=== PATIENT | male | born 1955 | race Caucasian/White ===

== ENCOUNTER → 2017-02-19 | Outpatient (CLI) | payer OTHER ==
[2017-02-19 09:47] LABS: HEMOGLOBIN 14.4 gm/dl (14.0-17.5); RED BLOOD COUNT 4.7 M/UL (4.20-5.50); WHITE BLOOD COUNT 4.5 K/UL (4.5-11.0)
[2017-02-19 10:24] LABS: BUN/CREATININE RATIO 14 (0-10)
== END ==
LOC: LAB 08:26
PROVIDERS: Family Medicine
DX: E11.9 Type 2 diabetes mellitus without complications (principal); Z79.899 Other long term (current) drug therapy
CPT/HCPCS: 36415; 80053; 80061; 83036; 84439; 84443; 85025

== ENCOUNTER → 2017-04-06 | Outpatient (CLI) | payer OTHER ==
[2017-04-06 10:43] LABS: HEMOGLOBIN 15.2 gm/dl (14.0-17.5); RED BLOOD COUNT 5.07 M/UL (4.20-5.50)
== END ==
LOC: LAB 10:11
PROVIDERS: Family Medicine
DX: D69.6 Thrombocytopenia, unspecified (principal)
CPT/HCPCS: 36415; 85025

== ENCOUNTER → 2017-05-18 | Outpatient (CLI) | payer OTHER ==
[2017-05-18 10:30] LABS: HEMOGLOBIN 15.1 gm/dl (14.0-17.5); RED BLOOD COUNT 5.01 M/UL (4.20-5.50); WHITE BLOOD COUNT 5.5 K/UL (4.5-11.0)
[2017-05-18 10:50] LABS: BUN/CREATININE RATIO 15 (0-10)
== END ==
LOC: LAB 10:03
PROVIDERS: Family Medicine
DX: E11.9 Type 2 diabetes mellitus without complications (principal); Z79.899 Other long term (current) drug therapy
CPT/HCPCS: 36415; 80053; 80061; 83036; 85025

== ENCOUNTER 2017-05-24 17:52 | Emergency (ER) | payer OTHER | END 2017-05-24 19:49 | disposition home or self-care (01) | LOC: ER1 17:52 | DX: S82.432A Displaced oblique fracture of shaft of left fibula, initial encounter for closed fracture (principal); I25.2 Old myocardial infarction; E11.9 Type 2 diabetes mellitus without complications; W10.9XXA Fall (on) (from) unspecified stairs and steps, initial encounter; Y92.009 Unspecified place in unspecified non-institutional (private) residence as the place of occurrence of the external cause; Z95.1 Presence of aortocoronary bypass graft; Z88.5 Allergy status to narcotic agent | CPT/HCPCS: 29515; 73590; 73610; 73630; 99283 ==

== ENCOUNTER → 2021-01-03 | Day surgery (SDC) | payer OTHER ==
[~2021-01-03] MED LIST: ACTOS30 MG PO; ADULT LOW DOSE81 MG PO; BACLOFEN10 MG PO; FARXIGA10 MG PO; FISH OIL 1,2001 EAC1 PO; ISOSORBIDE DINI30 MG PO; JANUVIA 100 MG100 MG PO; LANTUS100 UNIT/1 SQ; LEVOTHYROXINE25 MC1 PO; LIPITOR80 MG PO; METOPROLOL TART25 MG PO; NEURONTIN300 MG PO; PLAVIX75 MG PO; PROTONIX40 MG PO
== END | disposition home or self-care (01) ==
LOC: OR 07:16
DX: D50.0 Iron deficiency anemia secondary to blood loss (chronic) (principal); K31.9 Disease of stomach and duodenum, unspecified; D12.8 Benign neoplasm of rectum; I25.10 Atherosclerotic heart disease of native coronary artery without angina pectoris; I10 Essential (primary) hypertension; K21.9 Gastro-esophageal reflux disease without esophagitis; E11.9 Type 2 diabetes mellitus without complications; E78.5 Hyperlipidemia, unspecified; G47.30 Sleep apnea, unspecified; E66.01 Morbid (severe) obesity due to excess calories; E03.9 Hypothyroidism, unspecified; Z88.6 Allergy status to analgesic agent; Z83.3 Family history of diabetes mellitus; Z87.891 Personal history of nicotine dependence; Z79.82 Long term (current) use of aspirin; Z79.899 Other long term (current) drug therapy; Z95.1 Presence of aortocoronary bypass graft; Z68.41 Body mass index [BMI] 40.0-44.9, adult; Z79.4 Long term (current) use of insulin
CPT/HCPCS: 82962; J2250; J3010; J7040

== ENCOUNTER → 2021-01-11 | Outpatient (CLI) | payer OTHER ==
[2021-01-12 09:13] LABS: CREATININE, URINE 60.1 mg/dL (Not Estab.)
== END ==
LOC: LAB 15:40
PROVIDERS: Internal Medicine Nephrology
DX: N17.9 Acute kidney failure, unspecified (principal)
CPT/HCPCS: 36415; 80053; 81001; 82043; 82570; 84156

== ENCOUNTER → 2021-03-25 | Outpatient (CLI) | payer OTHER ==
[2021-03-25 10:51] LABS: HEMOGLOBIN 14.2 gm/dl (14.0-17.5); RED BLOOD COUNT 4.83 M/UL (4.20-5.50); WHITE BLOOD COUNT 5.6 K/UL (4.5-11.0)
== END ==
LOC: LAB 09:51
PROVIDERS: Family Medicine
DX: E11.9 Type 2 diabetes mellitus without complications (principal); Z79.899 Other long term (current) drug therapy
CPT/HCPCS: 36415; 80053; 80061; 83036; 84439; 84443; 85025

== ENCOUNTER → 2021-05-28 | Outpatient (CLI) | payer OTHER ==
[2021-05-29 12:12] LABS: CREATININE, URINE 128.9 mg/dL (Not Estab.)
== END ==
LOC: LAB 13:40
PROVIDERS: Internal Medicine Nephrology
DX: N17.9 Acute kidney failure, unspecified (principal)
CPT/HCPCS: 36415; 80053; 81001; 82043; 82570; 84156

== ENCOUNTER → 2021-07-30 | Outpatient (CLI) | payer OTHER | LOC: LAB 10:28 | PROVIDERS: Internal Medicine Nephrology | DX: N17.9 Acute kidney failure, unspecified (principal) | CPT/HCPCS: 80053; 81001; 82043; 82570; 84156 ==

== ENCOUNTER → 2022-01-03 | Outpatient (CLI) | payer OTHER | LOC: LAB 14:59 → LBRF 14:59 | DX: K63.3 Ulcer of intestine (principal) | CPT/HCPCS: 83993 ==

== ENCOUNTER → 2022-08-11 | Outpatient (CLI) | payer MEDICARE, OTHER ==
[2022-08-11 12:16] LABS: HEMOGLOBIN 15.7 gm/dl (14.0-17.5); RED BLOOD COUNT 4.99 M/UL (4.20-5.50); WHITE BLOOD COUNT 7.2 K/UL (4.5-11.0)
== END ==
LOC: LAB 11:21
PROVIDERS: Family Medicine
DX: E11.9 Type 2 diabetes mellitus without complications (principal); Z79.899 Other long term (current) drug therapy
CPT/HCPCS: 36415; 80053; 80061; 83036; 84439; 84443; 85025